=== PATIENT | female | born 1970 | race Caucasian/White ===

== ENCOUNTER 2024-04-19 18:49 | Emergency (ER) | payer BC, SELFPAY ==
[2024-04-19] VITALS (18 sets, daily range): BP systolic 175–176; BP diastolic 87–93; PULSE 62–108; TEMP 37; O2SAT 99–100; BMI 39.3
--- NOTE | 2024-04-19 19:23 | ECG_ITS ---
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
[2024-04-19 19:31] LABS: Basophils Absolute Auto 0.1 10^3/uL (0.0-0.1); Basophils Percent Auto 1.1 % (0.2-2.0); Eosinophils Absolute Auto 0.4 10^3/uL (0.0-0.7); Hematocrit 44.3 % (36.0-48.0); Hemoglobin 14.4 g/dL (12.0-16.0); Immature Granulocytes Abs Auto 0.08 10^3/uL (0.00-0.03); Immature Granulocytes Pct Auto 0.8 % (0.0-0.5); Lymphocytes Percent Auto 41.1 % (20.5-60.0); Mean Corpuscular HGB Conc 32.5 g/dL (29.9-35.2); Mean Corpuscular Hemoglobin 27.2 pg (26.7-34.0); Mean Corpuscular Volume 83.6 fL (81.0-99.0); Mean Platelet Volume 10.5 fL (9.5-13.5); Monocytes Percent Auto 10.5 % (1.7-12.0); Neutrophils Absolute Auto 4.1 10^3/uL (1.4-6.5); Neutrophils Percent Auto 42.5 % (43.0-75.0); Platelet Count 300 10^3/uL (150-450); Red Cell Distribution Width 12.8 % (11.0-15.0); White Blood Count 9.7 10^3/uL (4.0-11.0)
--- NOTE | 2024-04-19 19:33 | CT_ITS ---
[address] [address] Patient Name: LATONYA LACY MRN: [id number] date: 1970 Sex: F Assigned Patient Location: ER Current Patient Location: ER Accession/Order Number: [id number] Exam Date: 04/19/2024 19:48 Report Date: 04/19/2024 21:21 At the request of: DANITZA WAYNE Procedure: CT angio chest EXAM: CT angio chest , 04/19/2024 HISTORY: left sided chest pain, r/o Pulmonary embolism COMPARISON: Prior CT scan from 04/17/2022 TECHNIQUE: CT scan of the chest was performed following intravenous injection of 100 mL Omnipaque 350 iodine contrast with angio protocol. Coronal, sagittal and 3-D reconstructions are performed. Dose reduction techniques were achieved by using automated exposure control and/or adjustment of mA and/or kV according to patient size and/or use of iterative reconstruction technique. FINDINGS: The main pulmonary artery, right and left pulmonary arteries, lobar and segmental pulmonary arteries are patent and show no filling defect to suggest pulmonary thromboembolism. The lung windows demonstrate minimal dependent atelectasis. No focal consolidation or infiltrate. Right middle lobe 4 mm lung nodule and left lower lobe 5 mm lung nodule are unchanged since 2021 and likely benign. Follow-up with CT scan chest as per patient risk factors as advised. The mediastinal windows demonstrate patent thoracic aorta without aneurysm or dissection. Patent great vessels arising from the aortic arch. No pleural or pericardial effusion. The esophagus is nondilated. Small hiatal hernia. No axillary, mediastinal or hilar lymph node enlargement. The bone windows demonstrate minimal degenerative changes thoracic spine. No focal aggressive bone lesion. Scans through the upper abdomen show patent abdominal aorta, celiac axis and proximal superior mesenteric artery. Unremarkable adrenal glands. CT/CT angio chest IMPRESSION: 1. No evidence of pulmonary thromboembolism. 2. Small hiatal hernia. 3. Bilateral small lung nodules, unchanged since 2021, likely benign. Follow-up CT scan chest as per patient risk factors is advised. Electronically authenticated by: TONI DONALDSON Date: 04/19/2024 21:21
--- NOTE | 2024-04-19 19:35 | ED_ITS ---
HPI - Chest Pain General Chief Complaint: Chest Pain Stated Complaint: Chest Pain Time Seen by Provider: 04/19/24 19:19 Source: patient Mode of arrival: walk-in Limitations: no limitations History of Present Illness HPI narrative: 53-year-old female to the emergency department with chief complaint of chest pain. Patient reports that for the last 3 weeks she has had intermittent left- sided chest pain. She is unable to characterize. Comes on randomly. No provoking or palliating features. She does not have any cardiac history. She reports a history of hypertension, hyperlipidemia, hypothyroidism. No early cardiac disease in first-degree relative. Onset of the chest pain correlated with a upper respiratory infection that turned into bronchitis. The bronchitis has improved but the chest pain has not resolved. She denies any fever, sweats, chills. She has had a chest x-ray at an outside urgent care that was reported as normal last week. Related Data Home Medications ?Medication ?Instructions ?Recorded ?Confirmed albuterol sulfate 90 mcg/actuation 2 puff inhalation Q6H PRN 04/19/24 04/19/24 aerosol inhaler shortness of breath or wheezing cholecalciferol (vitamin D3) 50 50 mcg PO DAILY 04/19/24 04/19/24 mcg (2,000 unit) capsule levothyroxine 137 mcg tablet 137 mcg PO QDAY 04/19/24 04/19/24 lisinopril 20 mg tablet 20 mg PO QDAY 04/19/24 04/19/24 montelukast 10 mg tablet 10 mg PO QDAY 04/19/24 04/19/24 omeprazole 40 mg capsule,delayed 40 mg PO QDAY 04/19/24 04/19/24 release rosuvastatin 20 mg tablet 20 mg PO QDAY 04/19/24 04/19/24 Allergies Allergy/AdvReac Type Severity Reaction Status Date / Time amoxicillin Allergy Hives Verified 04/19/24 18:54 celecoxib [From Celebrex] AdvReac Hypertensio Verified 04/19/24 18:54 n meloxicam [From Mobic] AdvReac Hypertensio Verified 04/19/24 18:54 n Review of Systems ROS Status of ROS 10 or more systems reviewed and unremark able except as noted in history and below Exam Narrative Exam Narrative: VITALS: I have reviewed the triage vital signs. GENERAL: Well developed, well appearing adult in no acute distress. NEURO: Alert and oriented. Moves all extremities. Face is symmetric and expressive. EYES: PERRL. No scleral icterus or conjunctival injection. No discharge. HENT: Normocephalic, atraumatic. Hearing is grossly intact. Nares grossly patent and without discharge. Mucous membranes moist. NECK: No JVD. Patient moves neck without restriction. CARDIO: Rhythm regular. Normal rate. No murmur, rub, or gallop. Pulses equal bilaterally in the upper and lower extremity. No lower extremity edema. PULM: Lungs clear to auscultation in all victor. No wheezes, rales, or rhonchi. No conversational dyspnea. No splinting, stridor, or accessory muscle use. GI/: Abdomen is soft and non-tender. Normoactive bowel sounds. EXTREMITIES: Symmetric muscle bulk. No joint swelling. No clubbing, cyanosis, or deformity. SKIN: Warm and dry. Normal turgor. No rash or lesions appreciated. PSYCH: Mood, affect, and interaction is appropriate to the setting. Constitutional Vital Signs, click to edit/add: Last Vital Signs Temp 98.6 F 04/19/24 18:55 Pulse 91 H 04/19/24 18:55 Resp 16 04/19/24 18:55 BP 176/93 H 04/19/24 18:55 Pulse Ox 99 04/19/24 18:55 O2 Del Method Room Air 04/19/24 18:55 Course Vital Signs Vital signs: Vital Signs Temperature 98.6 F 04/19/24 18:55 Pulse Rate 91 H 04/19/24 18:55 Respiratory Rate 16 04/19/24 18:55 Blood Pressure 176/93 H 04/19/24 18:55 Pulse Oximetry 99 04/19/24 18:55 Oxygen Delivery Method Room Air 04/19/24 18:55 Temperature 98.6 F 04/19/24 18:55 Pulse Rate 91 H 04/19/24 18:55 Respiratory Rate 16 04/19/24 18:55 Blood Pressure 176/93 H 04/19/24 18:55 Pulse Oximetry 99 04/19/24 18:55 Oxygen Delivery Method Room Air 04/19/24 18:55 MDM - Chest Pain MDM Narrative Medical decision making narrative: 53-year-old female to the emergency department chief complaint of chest pain. Vital stable, the patient is afebrile. Cardiac workup is initiated. Moderate risk by Wells. Will order CTA for PE rule out and to better characterize if there is other acute process such as pneumonia causing the symptoms. History sounds more like pleurisy than acute coronary syndrome. Patient agrees with this plan. Lab work reviewed and noted. No major abnormalities. Troponin is negative x 2. CTA without evidence of pulmonary embolism, all nodules are again noted and unchanged, Discussed this with the patient. She is low risk by heart score. She is appropriate for outpatient follow-up with her PCP. Discussed NSAID therapy for suspected pleurisy. Return precautions were discussed. All questions were answered. The patient was discharged home. Heart Score for Major Cardiac Event History: Example factors for history - pattern of chest pain, onset, duration, relation with exercise, stress or cold, localization, concomitant symptoms. reaction to sublingual nitrates, [] Highly suspicious +2 [] Moderately suspicious +1 [x] Slightly suspicious 0 EKG: [] Significant ST-Depression +2 [] Non specific repolarization disturbance +1 [x] Normal 0 Age: [] >= 65 +2 [x] 45-65 + 1 [] <45 0 Risk Factors: (HLD, HTN, DM, Cigarette Smoking, Pos Family Hx, Obesity) [x] >3 risk factors or hx of atherosclerotic disease + 2 [] 1-2 risk factors + 1 [] No risk factors known 0 Troponin: [] >= 3X normal + 2 [] 1-3X normal + 1 [x] <= Normal 0 [x] 0-3 Points 0.9 - 1.7% risk of major adverse cardiac event in 6 weeks [] 4-6 Points 12-16.6% risk of major adverse cardiac event in 6 weeks [] 7-10 Points 50-65% risk of major adverse cardiac event in 6 weeks [x] 0-3 Points with 2 sets of negative cardiac markers <1% risk of major adverse cardiac event in 30 days. Medical Records Data Attestation: I reviewed the patient's medical records. Lab Data Attestation: I reviewed the patient's lab results. Labs: Lab Results 04/19/24 04/19/24 Range/Units 19:00 20:30 WBC 9.7 (4.0-11.0) 10^3/uL RBC 5.30 (4.20-5.40) 10^6/uL Hgb 14.4 (12.0-16.0) g/dL Hct 44.3 (36.0-48.0) % MCV 83.6 (81.0-99.0) fL MCH 27.2 (26.7-34.0) pg MCHC 32.5 (29.9-35.2) g/dL RDW 12.8 (11.0-15.0) % Plt Count 300 (150-450) 10^3/uL MPV 10.5 (9.5-13.5) fL Neut % (Auto) 42.5 L (43.0-75.0) % Lymph % (Auto) 41.1 (20.5-60.0) % Cameron % (Auto) 10.5 (1.7-12.0) % Eos % (Auto) 4.0 (0.9-7.0) % Baso % (Auto) 1.1 (0.2-2.0) % Neut # (Auto) 4.1 (1.4-6.5) 10^3/uL Lymph # (Auto) 4.0 H (1.2-3.8) 10^3/uL Cameron # (Auto) 1.0 H (0.3-0.8) 10^3/uL Eos # (Auto) 0.4 (0.0-0.7) 10^3/uL Baso # (Auto) 0.1 (0.0-0.1) 10^3/uL Abs Immat Gran (auto) 0.08 H (0.00-0.03) 10^3/uL Imm/Tot Granulo (auto) 0.8 H (0.0-0.5) % PT 10.4 (9.0-11.6) sec INR 0.98 APTT 28.4 (22.3-36.2) sec Sodium 141 (136-145) mmol/L Potassium 3.5 (3.5-5.1) mmol/L Chloride 106 (98-107) mmol/L Carbon Dioxide 27.6 (21.0-32.0) mmol/L Anion Gap 10.9 BUN 12.0 (7.0-18.0) mg/dL Creatinine 0.70 (0.55-1.02) mg/dL Est GFR ( Amer) >60 (>=60) Est GFR (Non-Af Amer) >60 (>=60) BUN/Creatinine Ratio 17.1 Glucose 91 (74-106) mg/dL Calcium 9.1 (8.5-10.1) mg/dL Troponin I High Sens 13.8 13.0 (4.0-51.3) pg/mL Imaging Data CT scan - chest: Radiologist's impression: ITS Impressions Chest CTA 04/19/24 19:33 IMPRESSION: 1. No evidence of pulmonary thromboembolism. 2. Small hiatal hernia. 3. Bilateral small lung nodules, unchanged since 2021, likely benign. Follow-up CT scan chest as per patient risk factors is advised. Electronically authenticated by: TONI DONALDSON Date: 04/19/2024 21:21 ECG Data Attestation: I personally reviewed and interpreted this ECG as follows: (Normal sinus rhythm at a rate of 63. No STEMI. Normal QTc.) Discharge Plan Discharge Stand Alone Forms: Portal Instructions Chief Complaint: Chest Pain Clinical Impression: Atypical chest pain Patient Disposition: Home, Self-Care Time of Disposition Decision: 21:43 Condition: Good Mode of Transportation: Private Vehicle Prescriptions / Home Meds: No Action albuterol sulfate 90 mcg/actuation HFA aerosol inhaler 2 puff INHALATION Q6H PRN (Reason: shortness of breath or wheezing) levothyroxine 137 mcg tablet 137 mcg PO QDAY lisinopril 20 mg tablet 20 mg PO QDAY montelukast 10 mg tablet 10 mg PO QDAY omeprazole 40 mg capsule,delayed release(DR/EC) 40 mg PO QDAY rosuvastatin 20 mg tablet 20 mg PO QDAY cholecalciferol (vitamin D3) 50 mcg (2,000 unit) capsule 50 mcg PO DAILY Print Language: Turkmen Instructions: Noncardiac Chest Pain (ED) Additional Instructions: Call the office of your primary care doctor to arrange for follow-up within the above-stated timeframe. Your ED visit was focused on your acute issue and does not replace primary care. You should review your labs, imaging, and diagnoses from this ED visit with your primary care physician. There may be non-emergent/ incidental findings that need further evaluation. You should review your vital signs including blood pressure with your PCP. If you were prescribed medications you should discuss possible side-effects and drug interactions with your pharmacist. Call 911 or go to the nearest Emergency Department if you develop any new or worsening symptoms. Seek immediate medical attention if you develop: worsening chest pain, new chest pain, nausea, vomiting, weakness, numbness, tingling, excessive sweating, shortness of breath, difficulty breathing, loss of motion in your arms or legs, or any new or worsening symptoms. Referrals: DELPHINE BRANTLEY [Primary Care Provider] - 1 week
[2024-04-19 19:40] LABS: INR 0.98; Partial Thromboplastin Time 28.4 sec (22.3-36.2); Prothrombin Time 10.4 sec (9.0-11.6)
[2024-04-19 19:49] LABS: Anion Gap 10.9; BUN Creatinine Ratio 17.1; Calcium 9.1 mg/dL (8.5-10.1); Carbon Dioxide 27.6 mmol/L (21.0-32.0); Chloride 106 mmol/L (98-107); Estimated GFR (African America >60 (>=60); Estimated GFR (Non-African Ame >60 (>=60); Glucose 91 mg/dL (74-106); Potassium 3.5 mmol/L (3.5-5.1); Sodium 141 mmol/L (136-145); Troponin I High Sensitivity 13.8 pg/mL (4.0-51.3)
== END 2024-04-19 22:00 | disposition home or self-care (01) ==
PROVIDERS: Emergency Provider Student in an Organized Health Care Education/Training Program; PCP Nurse Practitioner
DX: R07.89 Other chest pain (principal); I10 Essential (primary) hypertension; E03.9 Hypothyroidism, unspecified; E78.5 Hyperlipidemia, unspecified
CPT/HCPCS: 36415; 71275; 80048; 84484; 85025; 85610; 85730; 93005; 99285; Q9967

== ENCOUNTER 2025-03-16 08:34 | Outpatient (OUT) | payer BC, SELFPAY ==
--- NOTE | 2025-03-16 08:37 | CT_ITS ---
The [address] [address] Patient Name: LATONYA LACY MRN: [id number] date: 1970 Sex: F Assigned Patient Location: [facility] Current Patient Location: [facility] Accession/Order Number: [id number] Exam Date: 03/16/2025 09:49 Report Date: 03/16/2025 10:01 At the request of: NON-STAFF PHYSICIAN MD Procedure: CT chest wo con CT CHEST WITHOUT CONTRAST COMPARISON: 04/19/2024 and 04/17/2022 CLINICAL DATA: Follow-up lung nodules. Spiral images were obtained through the chest without contrast. Images were reviewed using both narrow and wide window settings. This CT exam was performed using one or more following dose reduction techniques: Automated exposure control, adjustment of the mA and/or kV according to patient size, or use of iterative reconstruction technique. The heart is top normal in size. No pericardial effusion is seen. The ascending aorta is mildly ectatic. A few small nonpathologic mediastinal lymph nodes are again seen. There is a tiny hiatal hernia. Subtle levoscoliotic curvature and minor endplate spurring are seen at the spine. There is minor dependent atelectasis. No additional consolidation, pleural effusion or pneumothorax is seen. There are tiny stable nodular densities at the right middle lobe adjacent to the minor fissure as well as at the left lower lobe. No new nodularity is seen. Limited cuts through the upper abdomen again show a subtle hypodensity area adjacent to the gallbladder fossa anteriorly. There are no other contributory findings. CT/CT chest wo con IMPRESSION: STABLE PULMONARY NODULARITY. MINOR DEPENDENT ATELECTASIS. TINY HIATAL HERNIA. Impression dictated by: Екатерина Boyle M.D. 03/16/2025 10:01 AM Dictation Location: [place] [address] Electronically authenticated by: [id number] Y Date: 03/16/2025 10:01
--- NOTE | 2025-03-16 08:37 | MM_ITS ---
Patient Name: LATONYA LACY MR#: [id number] : 1970 Exam Date: 03/16/2025 Ordering Doctor: NON-STAFF PHYSICIAN RADIOLOGY REPORT PROCEDURE: MM TOMOSYNTHESIS SCREENING BI COMPARISON: MM TOMOSYNTHESIS SCREENING BI, 04/27/2023. MM TOMOSYNTHESIS SCREENING BI, 03/13/2021. INDICATIONS: Screening Calculator Name NCI Breast Cancer Risk Assessment Tool 5 Year Breast Cancer Risk 1.10% Lifetime Breast Cancer Risk 7.20% Personal Breast Cancer No Personal Ovarian Cancer No Treatments None Family Cancers Grandmother-maternal with breast cancer at age 65; Father with lung/bladder cancer at age 70. LOCATION: [facility] BREAST COMPOSITION: There are scattered areas of fibroglandular density. FINDINGS: DIAGNOSTIC CATEGORY 1--NEGATIVE. RIGHT BREAST: No significant suspicious finding. LEFT BREAST: No significant suspicious finding. RECOMMENDATIONS: ROUTINE MAMMOGRAM AND CLINICAL EVALUATION IN 12 MONTHS. PLEASE NOTE: A NORMAL MAMMOGRAM DOES NOT EXCLUDE THE POSSIBILITY OF BREAST CANCER. A CLINICALLY SUSPICIOUS PALPABLE LUMP SHOULD BE BIOPSIED. Dictated by: Iron Oquendo DO on 03/16/2025 at 15:42 Approved by: Iron Oquendo DO on 03/16/2025 at 15:49
== END 2025-03-16 08:35 | disposition home or self-care (01) ==
LOC: MAMMO 08:34
PROVIDERS: PCP Nurse Practitioner
DX: R91.1 Solitary pulmonary nodule (principal); Z80.3 Family history of malignant neoplasm of breast; Z80.1 Family history of malignant neoplasm of trachea, bronchus and lung; Z80.52 Family history of malignant neoplasm of bladder
CPT/HCPCS: 71250; 77063; 77067

== ENCOUNTER 2025-07-26 02:50 | Emergency (ER) | payer BC, SELFPAY ==
[2025-07-26 03:32] VITALS: BP 178/101; PULSE 77; TEMP 36.8; O2SAT 98; BMI 38.6
--- NOTE | 2025-07-26 03:41 | XR_ITS ---
The [address] [address] Patient Name: LATONYA LACY MRN: [id number] date: 1970 Sex: F Assigned Patient Location: ED.MAIN Current Patient Location: Accession/Order Number: [id number] Exam Date: 07/26/2025 03:48 Report Date: 07/26/2025 07:58 At the request of: SUSAN LEVIN MD Procedure: XR soft tissue neck XR soft tissue neck 07/26/2025 3:54 AM SIGNS AND SYMPTOMS: ^diff swallowing PROTOCOLS: Frontal and lateral radiographs of the cervical spine COMPARISON: None FINDINGS: The bones are in anatomic alignment. There is preservation of the vertebral body heights. There is mild disc height loss at C5-C6 and C6-C7 with anterior osteophyte formation. There is no fracture or destructive lesion. The prevertebral soft tissues are within normal limits. The nasopharyngeal, oropharyngeal, hypopharyngeal, glottic, and visualized subglottic airway are within normal limits. XR/XR soft tissue neck IMPRESSION: Normal soft tissues of the neck. Impression dictated by: Nadir Olivera M.D. 07/26/2025 7:58 AM Dictation Location: [place] [address] Electronically authenticated by: [id number] Y Date: 07/26/2025 07:58
--- NOTE | 2025-07-26 03:43 | ED_ITS ---
HPI - URI/Sore Throat General Chief Complaint: Upper Respiratory Infection Stated Complaint: SORE THROAT, STUFFY NOSE, WATERY EYES Time Seen by Provider: 07/26/25 02:53 Source: patient Limitations: no limitations History of Present Illness HPI Narrative: This 54-year-old female with a history of hypertension presents for evaluation of sinus congestion and a sore throat. The patient states she feels like she is going to choke on her uvula. Symptoms started yesterday. She has a mild rhinorrhea. She has not had a fever. She states it feels like razor blades in the back of her throat. She does not have any cough or chest congestion. She denies any chest pain or shortness of breath. She does have a history of asthma. She is on lisinopril. Related Data Home Medications ?Medication ?Instructions ?Recorded ?Confirmed albuterol sulfate 90 mcg/actuation 2 puff inhalation Q 6H PRN 04/19/24 04/19/24 aerosol inhaler shortness of breath or wheez ing cholecalciferol (vitamin D3) 50 50 mcg PO DAILY 04/19/24 mcg (2,000 unit) capsule levothyroxine 137 mcg tablet 137 mcg PO QDAY 04/19/24 04/19/24 lisinopril 20 mg tablet 20 mg PO QDAY 04/19/2404/19 montelukast 10 mg tablet 10 mg PO QDAY 04/19/2404/19 omeprazole 40 mg capsule,delayed 40 mg PO QDAY 4 04/19/24 release rosuvastatin 20 mg tablet 20 mg PO QDAY 04/19/2404/19 Allergies Allergy/AdvReac Type Severity Reaction Status Date / Time amoxicillin Allergy Hives Verified 07/26/25 03:32 celecoxib (From Celebrex) AdvReac Hypertensio Verified 07/26/25 03:32 n meloxicam (From Mobic) AdvReac Hypertensio Verified 07/26/25 03:32 n Review of Systems ROS Status of ROS 10 or more systems reviewed and unremark able except as noted in history and below PFSH PFSH Social History Little interest or pleasure in doing things: not at all Feeling down, depressed, or hopeless: not at all Exam Narrative Exam Narrative: Vital signs and Nursing Notes reviewed: As afebrile with normal pulse, blood pressure is elevated at 178/101, she is not hypoxic with pulse ox of 98% on room air General: Awake, alert, oriented, no acute distress, lying comfortably on the [facility], speaking in complete sentences, no distress noted HEENT: Normocephalic atraumatic, mucous membranes are moist and pink, eyes are clear, normal conjunctiva, vision is grossly intact, there is mild erythema and edema with elongation of the uvula, mild right peritonsillar edema as well. No tonsillar hypertrophy or exudate noted. There is no swelling of the tongue or pharyngeal soft tissues, there is no pooling of secretions, patient's speech is clear, not muffled Neck: Supple, no fullness in the anterior neck, no stridor Chest: Lungs are clear to auscultation with good air entry, there is no wheezing rhonchi or rales appreciated no accessory muscle use, patient is speaking in complete sentences-no chest wall tenderness to palpation CVS: Regular rate and rhythm S1-S2, no murmurs rubs or gallops, pulses are brisk and equal bilaterally Extremities: Moving all extremities, no lower extremity tenderness or swelling noted, negative Homans' sign, pulses are brisk and equal bilaterally Skin: Normal in appearance without rash,pallor, petechiae or purpura Neuro: No focal deficits Constitutional Vital Signs, click to edit/add: Last Vital Signs Temp 98.3 F 07/26/25 03:32 Pulse 77 07/26/25 03:32 Resp 17 07/26/25 03:32 BP 178/101 H 07/26/25 03:32 Pulse Ox 98 07/26/25 03:32 O2 Del Method Room Air 07/26/25 03:32 Course Vital Signs Vital signs: Vital Signs Temperature 98.3 F 07/26/25 03:32 Pulse Rate 77 07/26/25 03:32 Respiratory Rate 17 07/26/25 03:32 Blood Pressure 178/101 H 07/26/25 03:32 Pulse Oximetry 98 07/26/25 03:32 Oxygen Delivery Method Room Air 07/26/25 03:32 Temperature 98.3 F 07/26/25 03:32 Pulse Rate 77 07/26/25 03:32 Respiratory Rate 17 07/26/25 03:32 Blood Pressure 178/101 H 07/26/25 03:32 Pulse Oximetry 98 07/26/25 03:32 Oxygen Delivery Method Room Air 07/26/25 03:32 MDM - URI/Sore Throat MDM Narrative Medical decision making narrative: This 54-year-old female with history of asthma presents for evaluation of upper respiratory symptoms. She states she thought she was getting a sinus cold yesterday because she had runny nose and sinus congestion. She woke up this morning with a sore throat and a sensation that her uvula was going to choke her if she was going to lie down. She has not had a fever. She has not taken her medications this morning because she states it hurts to swallow. Her blood pressure is elevated at 170/101. She does have some uvula edema and elongation with some right sided peritonsillar edema. There is no peritonsillar abscess. I cannot see her tonsils. I do not appreciate any postnasal drip. There is no swelling of the tongue or additional soft tissues of the mouth. There is no stridor, trachea is midline and there is no appreciable lymphadenopathy. She was medicated with ibuprofen and IM Solu-Medrol for the uvular swelling and swelling of the peritonsillar soft tissues. She was given ibuprofen for her discomfort and hot tea. She is not having any trismus or drooling. There is no pooling of secretions, there is no swelling of the sublingual tissues of her tongue, the tongue itself her lips or her anterior neck. Strep and COVID-19 testing was ordered as well as a soft tissue x-ray of the neck. Soft tissue x- ray of the neck was reviewed by myself. There is no sign of epiglottitis with normal landmarks and prevertebral spaces. Strep and COVID-19 testing is negative. The patient was reevaluated. She is drinking hot tea without difficulty. Her voice is less scratchy and she states she feels better. Her uvula is still mildly edematous but the edema has not increased or worsened. There is no increased peritonsillar swelling. She is tolerating secretions without difficulty. Due to the uvula edema and erythema she will be discharged home with a prescription for doxycycline and a Medrol Dosepak will be prescribed. I explained to her that her symptoms are likely viral in nature but due to the uvula swelling I will prescribe her antibiotics. I did discuss angioedema with her in regards to her lisinopril. At this time I do not feel that this is consistent with angioedema more consistent with an upper respiratory tract infection but is something for her to be aware of. Lab Data Labs: Lab Results 07/26/25 Range/Units 05:35 SARS-CoV-2 Ag (CV2AG) Negative (NEGATIVE) Streptococcus Screen Negative Discharge Plan Discharge Chief Complaint: Upper Respiratory Infection Clinical Impression: Upper respiratory infection, Swollen uvula Patient Disposition: Home, Self-Care Time of Disposition Decision: 06:00 Condition: Good Prescriptions / Home Meds: No Action albuterol sulfate 90 mcg/actuation HFA aerosol inhaler 2 puff INHALATION Q6H PRN (Reason: shortness of breath or wheezing) levothyroxine 137 mcg tablet 137 mcg PO QDAY lisinopril 20 mg tablet 20 mg PO QDAY montelukast 10 mg tablet 10 mg PO QDAY omeprazole 40 mg capsule,delayed release(DR/EC) 40 mg PO QDAY rosuvastatin 20 mg tablet 20 mg PO QDAY cholecalciferol (vitamin D3) 50 mcg (2,000 unit) capsule 50 mcg PO DAILY Print Language: Yoruba Instructions: Pharyngitis (ED), Upper Respiratory Infection (ED) Referrals: DELPHINE BRANTLEY [Primary Care Provider, Unknown] - 1 week
--- OUTSIDE RECORDS SUMMARY | 2025-07-26 03:51 | XMS_ITS | Clinical Summary ---
Author Organization [facility] tem Address [facility] [place]-[id number] [address] [place] [address] Care Team Providers Care Outsole Rounder Name Role Phone Anju Roblero B[facility]va [facility] Primary Care Provider + Allergies Active AllergyReactionsCriticalityNoted GhztEfhrdyfqPequyhfnhudAnjaXez06/02/2021 XltwsrojtkfnavcmbemllWskd42/02/2021 Medications MedicationSigDispense QuantityRefillsLast FilledStart DateEnd DateStatus levothyroxine (SYNTHROID, LEVOTHROID) 150 MCG tablet Take 150 mcg by mouth daily.Active lisinopriL (PRINIVIL,ZESTRIL) 20 mg tablet Take 20 mg by mouth daily.Active montelukast (SINGULAIR) 10 mg tablet Take 10 mg by mouth nightly.Active cholecalciferol (VITAMIN D3) 1,000 units tablet Take 1,000 Units by mouth daily.Active Social History Tobacco UseTypesPacks/DayYears UsedDateSmoking Tobacco: NeverSmokeless Tobacco: NeverAlcohol UseStandard Drinks/WeekCommentsYes0 (1 standard drink = 0.6 oz pure alcohol)ChildcareAnswerDate MpnbcbsqMypwaxjcbMnvvwsu53/12/2019EmploymentAnswer Date DtyekscqGycavdnfhxOvaumjf91/12/2019CommentsNoSex and Gender InformationValueDate RecordedSex Assigned at BirthNot on fileLegal SexFemale 05/10/2015 11:59 AM EDTGender IdentityNot on fileSexual OrientationNot on file Last Filed Vital Signs Vital SignReadingTime TakenCommentsBlood Bgoaptgu814/7110 9:17 PM EDT Rsnts672511/2020 9:17 PM WZXPmwncfcaunc74 ??C (98.6 ??F)07/06/2021 9:17 PM EDT Respiratory Lkmt2372 9:17 PM EDTOxygen Ozgtdxxiro06%07/06/2021 9:17 PM EDTInhaled Oxygen Concentration--Atrojv35.9 kg (218 lb)07/06/2021 9:17 PM EDT Cgtiap021 cm (5' 3 )07/06/2021 9:17 PM EDTBody Mass Index38.6207/06/2021 9:17 PM EDT Plan of Treatment Not on file Medical Devices Not on file Insurance Care Teams Team MemberRelationshipSpecialtyStart DateEnd Date Anju Roblero, STEPHEN-JAVA ENTERPRISE ARCHITECT PCP - GeneralNurse Zkytmljrekrr06/2/21
--- OUTSIDE RECORDS SUMMARY | 2025-07-26 03:52 | XMS_ITS | Clinical Summary ---
Author Organization [facility] Address [address], [address] [place] [address] Care Team Providers Care Hang Gliding Instructor Name Role Phone Anju vail STEPHEN - BARREL DRUM CUTTER Primary Care Provider [phone] Allergies Active AllergyReactionsCriticalityNoted FdthAmkfmrikYdkbvhigjfpQnwjUfa72/07/2012 CelecoxibOther (See Comments)11/11/2011 Elevated BP MobicOther (See Comments)11/11/2011 Red in face, elevated BP Niacin And GwhxnroAtqcEtnwvv62/03/2019 Medications MedicationSigDispense QuantityRefillsLast FilledStart DateEnd DateStatus LISINOPRIL PO Take 20 mg by mouth DailyActive sertraline (ZOLOFT) 100 MG tablet Take 100 mg by mouth daily Take 1 1/2 tabs dailyActive cetirizine (ZYRTEC) 10 MG tablet Take 10 mg by mouth dailyActive montelukast (SINGULAIR) 10 MG tablet Take 10 mg by mouth nightlyActive omeprazole (PRILOSEC) 20 MG delayed release capsule Take 20 mg by mouth dailyActive gabapentin (NEURONTIN) 100 MG capsule Take 100 mg by mouth daily.Active VITAMIN D-3 SUPER STRENGTH 2000 units TABS Take 20,000 mg by mouth daily02/21/2019Active estradiol (ESTRACE) 0.1 MG/GM vaginal cream Place 0.01 g vaginally as saaamx2802/21/2019Active fluticasone (FLONASE) 50 MCG/ACT nasal spray 50 sprays by Nasal route daily03/18/2019Active levothyroxine (SYNTHROID) 150 MCG tablet Take 150 mcg by mouth daily02/15/2019Active rosuvastatin (CRESTOR) 5 MG tablet Take 5 mg by mouth daily03/03/2019Active albuterol sulfate (PROAIR RESPICLICK) 108 (90 Base) MCG/ACT aerosol powder inhalation Inhale 90 Inhalers into the lungs as jonfqi9803/04/2017Active Na Sulfate-K Sulfate-Mg Sulf (SUPREP BOWEL PREP KIT) 17.5-3.13-1.6 GM/177ML SOLN Take as directed 2 Bottle 10/20/2019Active azelastine (ASTELIN) 0.1 % nasal spray by Nasal routeActive Active Problems ProblemNoted DateDiagnosed UpyzHadxochvy17/02/2016 Resolved Problems ProblemNoted DateDiagnosed DateResolved DateColon cancer /22/2019 11/19/2019 Family History Medical HistoryRelationNameCommentsOtherBrotherdiverticulosisDiabetesFatherHigh Blood PressureFatherColon PolypsMaternal GrandfatherBreast CancerMaternal GrandmotherDiabetesMotherHigh Blood PressureMotherOtherMotherpituitary tumor StrokeMotherRelationNameStatusCommentsBrotherAliveFatherAliveMaternal GrandfatherMaternal GrandmotherMotherAlive Social History Tobacco UseTypesPacks/DayYears UsedDateSmoking Tobacco: NeverSmokeless Tobacco: NeverAlcohol UseStandard Drinks/WeekCommentsYes0 (1 standard drink = 0.6 oz pure alcohol)rarelyCommentsNoSex and Gender InformationValueDate RecordedSex Assigned at BirthNot on fileLegal PjgCvfgre87/10/2013 11:42 AM ESTGender IdentityNot on fileSexual OrientationNot on file Last Filed Vital Signs Vital SignReadingTime TakenCommentsBlood Fdbvrjgx598/8210 2:40 PM EDT Wzpqz2227 2:40 PM DEBBuskuxbwykl93.1 ??C (96.9 ??F)06/12/2021 2:40 PM EDTRespiratory Rwdq4876 2:40 PM EDTOxygen Ohksplaccj97%05/16/2019 2:22 PM EDTInhaled Oxygen Concentration--Kxxgmv96.6 kg (202 lb)11/12/2015 10:25 AM MSHUvbbnp029 cm (5' 3 )11/12/2015 10:25 AM ESTBody Mass Index35.78011/12/2015 10:25 AM EST Plan of Treatment Health MaintenanceDue DateLast DoneCommentsDepression Cashwc0609/06/1980HIV screen 1983Hepatitis C beetzr9209/06/1986Hepatitis B vaccine (1 of 3 - 19+ 3-dose series)09/06/19871617Fohvehlgptw92/03/2013Colorectal Cancer Mlljyi5209/06/2013 FIT/FOBT: Average risk2013Fecal-DNA (Cologuard): Average risk2013 Sigmoidoscopy/CT louqpyerhiqo28/03/2050Izhqdu83, 10/03/2014, 07/23/2013Pneumococcal 50+ years Vaccine (1 of 1 - PCV)2018Shingles vaccine (2 of 2)/2Breast cancer , 09/25/2022, 03/13/2021, Additional history existsFlu vaccine (#1)05/05/2025 COVID-19 Vaccine (2024- season)501/04/2022, 01/24/2021, 01/03/2021, Additional history existsDTaP/Tdap/Td vaccine (2 - Td or Tdap) Hepatitis A vaccineAged OutNo longer eligible based on patient's age to complete this topicHib vaccineAged OutNo longer eligible based on patient's age to complete this topicMeningococcal (ACWY) vaccineAged OutNo longer eligible based on patient's age to complete this topicMeningococcal B vaccineAged OutNo longer eligible based on patient's age to complete this topic Polio vaccineAged OutNo longer eligible based on patient's age to complete this topic Procedures Procedure NamePriorityDate/TimeAssociated DiagnosisCommentsMAM BOBBY DIGITAL SCREEN SKUORYUZYElxqkyf68/24/2023 5:03 PM EDT Breast cancer screening by mammogram LIPID XAJWLZftbyqc84/05/2015 7:50 AM EST from Last 3 Months or Most Recently Relevant to Health Maintenance Results * NAVA BOBBY DIGITAL SCREEN BILATERAL (04/27/2023 5:03 PM EDT)Anatomical Region LateralityModalityBreastBilateralMammographySpecimen (Source)Anatomical Location / LateralityCollection Method / VolumeCollection TimeReceived Time 04/27/2023 5:07 PM EDT Impressions 04/27/2023 6:38 PM EDT No evidence of malignancy. Advise annual screening mammography. BI-RADS 1 BIRADS: BIRADS - CATEGORY 1 Negative, no evidence of malignancy. ??Normal interval follow-up is recommended in 12 months. OVERALL ASSESSMENT - NEGATIVE A letter of notification will be sent to the patient regarding the results. The [employer] recommends annual mammograms for women 40 years and older. Narrative 04/27/2023 6:38 PM EDT EXAMINATION: SCREENING DIGITAL BILATERAL MAMMOGRAM WITH TOMOSYNTHESIS, 04/27/2023 TECHNIQUE: Screening mammography was performed with tomosynthesis including MLO and CC views of the bilateral breasts. Computer aided detection was used for the interpretation of this exam. COMPARISON: 12 March 2021; 03 August 2019 HISTORY: Screening. Positive family history of breast cancer; maternal grandmother after age 50. ??22 year history of oral contraception. ??No hormonal replacement therapy or breast interventions. FINDINGS: Breasts are composed of scattered fibroglandular density. ??No skin thickening, nipple contour changes, suspicious calcifications, suspicious masses, areas of architectural distortion or significant interval changes are noted. Authorizing ProviderResult TypeResult StatusOrin De Los Santos CAN REFORMING MACHINE OPERATOR - NPIMG MAMMOGRAPHY ORDERABLESFinal Result * Lipid Panel (09/08/2015 7:50 AM EST)ComponentValueRef RangeTest MethodAnalysis TimePerformed AtPathologist AoqnxgcvhJgbiiblbexh069<200 mg/dL09/08/2015 8:46 AM ESTMHPN LABComment: Cholesterol Guidelines: <200 Desirable 200-240 ??Borderline >240 Undesirable HDL55>40 mg/dL09/08/2015 8:46 AM ESTMHPN LABComment: HDL Guidelines: <40 Undesirable 40-59 ?Borderline >59 Desirable LDL Ykgihpcxbza1466 - 130 mg/dL09/08/2015 8:46 AM ESTMHPN LABComment: LDL Guidelines: <100 Desirable 100-129 ?? Near to/above Desirable 130-159 ?? Borderline >159 Undesirable Direct (measured) LDL and calculated LDL are not interchangeable tests. Chol/HDL Ratio3.4< 8:46 AM ESTMHPN LABComment:Mxifibpmhfukz68<150 mg/dL09/08/2015 8:46 AM ESTMHPN LABComment: Triglyceride Guidelines: <150 Desirable 150-199 ??Borderline 200-499 ??High >499 Very high Based on AHA Guidelines for fasting triglyceride, July 2012. Performed at [address] [place] [address] ([phone] VLDLNOT REPORTED1 - 30 mg/dLSELECT [facility] LABSpecimen (Source) Anatomical Location / LateralityCollection Method / VolumeCollection Time Received Time09/08/2015 7:50 AM EST09/08/2015 7:51 AM EST Narrative Authorizing ProviderResult TypeResult StatusRachel Fruth CAN REFORMING MACHINE OPERATOR - NPCHEMISTRY ORDERABLESFinal ResultPerforming OrganizationAddressCity/State/ZIP CodePhone Number [facility] [address] [place] [address], [facility] [phone] MH LAB from Last 3 Months or Most Recently Relevant to Health Maintenance Insurance Care Teams Team MemberRelationshipSpecialtyStart DateEnd Date Anju Roblero APRN - ELIZABETH [address] [place], [place] [id number] [facility]02/17/22
--- OUTSIDE RECORDS SUMMARY | 2025-07-26 03:52 | XMS_ITS | Clinical Summary ---
Author Organization [facility] Address [address] [place] [address] Care Team Providers Care Doll Repairer Name Role Phone Nuris, Jose M Cruz DO Primary Care Provider Orin De Los Santos PULPWOOD BUYER Unavailable Allergies Active AllergyReactionsCriticalityNoted DateCommentsA-G LbmQgoef03/17/2021 RardotzpevgInmvPms47/07/7057Thcgmpaxk84/07/2012 Other Reaction(s): Other (See Comments), Unknown Elevated BP PhyujmdugOdzalBvyr83/07/2012 Other Reaction(s): hypertension, Unknown Red in face, elevated BP Niacin And RelatedHives,KidtZffnfm45/03/2019Penicillin UMtbybru79/17/2021 Zxdpzbitul79/02/2023 Other Reaction(s): sexual side effects OksqaczYlpgbeb08/17/2021 Medications MedicationSigDispense QuantityRefillsLast FilledStart DateEnd DateStatus Elderberry 500 MG capsule Active cholecalciferol (Vitamin D-3) 25 MCG (1000 UT) tablet Take 1,000 Units by mouth in the morning.Active cetirizine (ZyrTEC ALLERGY) 10 MG tablet 1 (one) time each day at the same timeActive azelastine (Astelin) 0.1 % nasal spray every 12 (twelve) hoursActive Ashwagandha 500 MG capsule DailyActive albuterol HFA 90 mcg/act inhaler 04/15/2022ctive pyridoxine (Vitamin B-6) 25 MG tablet Take 25 mg by mouth DailyActive cyanocobalamin (Vitamin B-12) 1000 MCG tablet Take 1,000 mcg by mouth DailyActive Calcium Carb-Cholecalciferol (CALCIUM 500 + D3 PO) Take by mouthActive multivitamin (Theragran) tablet Take 1 tablet by mouth DailyActive cyclobenzaprine (Flexeril) 10 MG tablet Indications:Muscle spasmTake 1 tablet (10 mg) by mouth at bedtime for 10 days 10 tablet 4Active ALPRAZolam (Xanax) 0.25 MG tablet Indications:Stress reactionTake 1 tablet (0.25 mg) by mouth 2 (two) times a day as needed for anxiety for up to 5 days 10 tablet 5Active aspirin 81 MG EC tablet Take 81 mg by mouth DailyActive loratadine (Claritin) 10 MG tablet Take by mouthActive predniSONE (Deltasone) 20 MG tablet Indications:Acute pain of left shoulder2 daily for 3 days, then 1 daily for 3 days 9 tablet 5Active Additional Information Patient not taking.Reported on 03/20/2025 levothyroxine (Synthroid, Levoxyl) 137 MCG tablet Indications:Acquired hypothyroidismTake 137 mcg by mouth in the morning. Take before meals. 90 tablet /6Active omeprazole (PriLOSEC) [address] capsule Indications:GERD without esophagitisTAKE 1 CAPSULE BY MOUTH IN THE MORNING BEFORE A MEAL DO NOT CRUSH OR CHEW 90 capsule 5Active lisinopril 20 MG tablet Indications:Essential hypertensionTAKE 1 TABLET BY MOUTH IN THE MORNING 90 tablet 5Active montelukast (Singulair) 10 MG tablet Indications:Asthma, unspecified asthma severity, unspecified whether complicated, unspecified whether persistent (HCC)TAKE 1 TABLET BY MOUTH AT BEDTIME 90 tablet 5Active rosuvastatin (Crestor) 20 MG tablet Indications:Mixed hyperlipidemiaTAKE 1 TABLET BY MOUTH ONCE DAILY 90 tablet 5Active Active Problems ProblemNoted DateDiagnosed IzqpSziursdeukju23/20/2019Stress /21/2017 Epahkfwnd63/01/9625Wakkablywfbj98/29/2016Status post nlvkpldautcy15/04/2016 Hiatal qadvut8411/12/2015Reflux aelqczagjcd02/08/2016Acquired hypothyroidism 10/09/2015Environmental and seasonal velwfpwbh93/05/2016Vitamin D deficiency 10/09/20154137Ltcwnn97/07/2015Essential wmnusqjsrsil57/07/2015 Resolved Problems ProblemNoted DateDiagnosed DateResolved DateMorbid (severe) obesity due to excess xsevvuyk44Pulmonary ccqlbl54Facial zeewtbjtspc38Mixed stress and urge urinary incontinence Surgical pmvmcsrjz93Menopausal disorder lass 2 gmkodxb19Tension-type headache, not jcspazrpmqm41nxietySchatzki's ring DysphagiaHyperglycemia10/09/2015 02/13/2025Mixed dhaglxqfvrbqfh00 Encounters DateTypeDepartmentCare XmgfLhkknfwiroo29/22/2025Telephone [facility] [address] [place] [address] Jayne Lazo LPN Appointment Neihmxg9305/26/2025Refill [facility] [address] [place] [address] Orin De Los Santos, PULPWOOD BUYER Essential hypertension ; Asthma, unspecified asthma severity, unspecified whether complicated, unspecified whether persistent (HCC); Mixed gvtehlqbdxnonp51/22/2025Refill [facility] [address] [place] [address] Elizabeth Vieira, PULP[employer]OD BUYER GERD without esophagitisfrom Last 3 Months Immunizations ImmunizationAdministration DatesNext DuePfizer Purple Cap SARS-CoV-2 Vaccination 12/21/2020Tdap10/20/2017Zoster, Asxyqtlrivo13/07/2022 Family History Medical HistoryRelationNameCommentsAsthmaDaughterMadisonDiabetesFatherDaniel Hearing lossFatherDanielHeart diseaseFatherDanielHypertensionFatherDanielLung cancerFatherDanielbladder cancerFatherDanielKidney diseaseMaternal Grandfather HubertBreast cancerMaternal GrandmotherNellieDepressionMaternal Grandmother NellieUterine cancerMaternal GrandmotherNellieArthritisMotherDorisDiabetesMother DorisGoutMotherDorisIrritable bowel syndromeMotherDorisStrokeMotherDoris pituitary tumorMotherDorisRelationNameStatusCommentsDaughterMadisonFatherDaniel AliveMaternal GrandfatherHubertDeceasedMaternal GrandmotherNellieDeceasedMother DorisAlivePaternal GrandfatherDeceasedPaternal GrandmotherDeceased Social History Tobacco UseTypesPacks/DayYears UsedDateSmoking Tobacco: NeverSmokeless Tobacco: Never Tobacco Cessation:Counseling Given: No Alcohol UseStandard Drinks/WeekCommentsYes1 (1 standard drink = 0.6 oz pure alcohol)Maybe once a quiqkW6216 Health LiteracyAnswerDate RecordedHow often do you need to have someone help you when you read instructions, pamphlets, or other written material from your doctor or pharmacy?Never02/13/2025Humiliation, Afraid, Rape, and Kick questionnaireAnswerDate RecordedWithin the last year, have you been afraid of your partner or ex-partner?No02/13/2025Within the last year, have you been humiliated or emotionally abused in other ways by your partner or ex-partner?No02/13/2025Within the last year, have you been kicked, hit, slapped, or otherwise physically hurt by your partner or ex-partner?No 02/13/2025Within the last year, have you been raped or forced to have any kind of sexual activity by your partner or ex-partner?No02/13/2025Social Connection and Isolation PanelAnswerDate RecordedIn a typical week, how many times do you talk on the phone with family, friends, or neighbors?More than three times a week02/13/2025How often do you get together with friends or relatives?Once a week02/13/2025How often do you attend sabianism or jainism services?Patient rdknjdka02/12/2025Do you belong to any clubs or organizations such as sabianism groups, unions, fraTrendy Mondays or athletic groups, or school groups?No02/13/2025How often do you attend meetings of the clubs or organizations you belong to?Never 02/13/2025re you , , , , never , or living with a partner?Cpwxwtm9202/13/2025UDIT-CAnswerDate RecordedQ1: How often do you have a drink containing alcohol?Monthly or less02/13/2025Q2: How many drinks containing alcohol do you have on a typical day when you are drinking?1 or Q3: How often do you have six or more drinks on one occasion?Less than cfoiasc8602/13/2025Overall Financial Resource Strain (CARDIA)AnswerDate RecordedHow hard is it for you to pay for the very basics like food, housing, medical care, and heating?Not hard at all02/13/2025PHQ-2AnswerDate Recorded Patient Health Questionnaire-2 Uywbp375Fin[facility] [place] of Occupational [facility] - Occupational Stress QuestionnaireAnswerDate RecordedDo you feel stress - tense, restless, nervous, or anxious, or unable to sleep at night because your mind is troubled all the time - these days?Not at all02/13/2025Exercise Vital SignAnswerDate RecordedOn average, how many days per week do you engage in moderate to strenuous exercise (like a brisk walk)?1 day02/13/2025On average, how many minutes do you engage in exercise at this level?30 min02/13/2025Hunger Vital SignAnswerDate RecordedWithin the past 12 months, you worried that your food would run out before you got the money to buymore.Never true02/13/2025 Within the past 12 months, the food you bought just didn't last and you didn't have money to get more.Never true02/13/2025PRAPARE - TransportationAnswerDate RecordedIn the past 12 months, has lack of transportation kept you from medical appointments or from getting medications?No02/13/2025In the past 12 months, has lack of transportation kept you from meetings, work, or from getting things needed for daily living?No02/13/2025Housing Stability Vital SignAnswerDate RecordedIn the last 12 months, was there a time when you were not able to pay the mortgage or rent on time?No10/12/2023In the last 12 months, how many places have you lived?In the last 12 months, was there a time when you did not have a steady place to sleep or slept in unionelter (including now)?No 10/12/2023Housing Stability Vital SignAnswerDate RecordedIn the last 12 months, was there a time when you were not able to pay the mortgage or rent on time?No 02/13/2025In the past 12 months, how many times have you moved where you were living?t any time in the past 12 months, were you homeless or living in a intermediate (including now)?No02/13/2025CommentsNoSex and Gender InformationValueDate RecordedSex Assigned at MtnodJjnrsr82/02/2023 12:43 PM EDT Legal SstYgogjf32/15/2023 7:12 PM EDTGender DofdeezfGtlxkq14/02/2023 12:43 PM EDTSexual OrientationNot on file Last Filed Vital Signs Vital SignReadingTime TakenCommentsBlood Toihguuf021/8006 1:48 PM EDT Nxelk697803/20/2025 1:48 PM KDNGbmuleyqbhr76 ??C (96.8 ??F)03/13/2025 9:32 AM EDT Respiratory Ixve873703/20/2025 1:48 PM EDTOxygen Hvegxduhsq99%03/20/2025 1:48 PM EDTInhaled Oxygen Concentration--Vqsqzr775 kg (221 lb)03/20/2025 1:48 PM EDT Aabaew095 cm (5' 3 )03/20/2025 1:48 PM EDTBody Mass Index39.15003/20/2025 1:48 PM EDT Plan of Treatment DateTypeDepartmentCare Team (Latest Contact Info)Hkhnkzalprs63/23/2025 1:30 PM EDTOffice Visit [facility] [address] [place] [address] Anju Roblero NP [address] [place] [address] 09/29/2025 1:00 PM ESTOffice Visit [facility] [address] [place] [phone] Orin De Los Santos NP [address] [place], [place] [id number] 03/19/2026 2:00 PM EDTOffice Visit [facility] [address] [place] [address] Maddison Ruiz MD [address] [place] [address] Health MaintenanceDue DateLast DoneCommentsCT Dvzgzfswgjnp1968FIT-DNA 1970 1291Emhiqechldnlw45/03/4070JWE74FOBT/ Influenza Vaccine (#1)06/05/20255197Mhjujzbnb31/16/350457/, 04/27/2023, 04/27/2023, Additional history vmywfnBecurnzdlbe70/03/203105/olorectal Cancer Ixzerjcsg99/03/2031 Procedures Procedure NamePriorityDate/TimeAssociated DiagnosisCommentsBI MAMMOGRAM SCREENING QELUVKQIODtgfdjc74/16/2025 7:06 AM EDT Breast cancer screening by mammogram AQMIFGAHELPQzktkpg85/12/2020 12:00 PM EDT Q - FECAL GLOBIN BY ZKMJPRVPGEBOMYKInynfvb17/25/2021 from Last 3 Months or Most Recently Relevant to Health Maintenance Results * Bilateral screening mammogram (03/20/2025 7:06 AM EDT) Narrative Authorizing ProviderResult TypeResult StatusOrin De Los Santos NPIMG BI PROCEDURESFinal ResultPerforming OrganizationAddressCity/State/ZIP CodePhone Number [facility] [address] [place] [address], * Colonoscopy (02/04/2021 12:00 PM EDT)Anatomical RegionLateralityModality EndoscopySpecimen (Source)Anatomical Location / LateralityCollection Method / VolumeCollection TimeReceived Time02/04/2021 12:00 PM EDT Narrative 02/04/2021 12:00 PM EDT PERFORMED AT [facility] LOCATION:[id number] negative Procedure Note CONVERSION, GENERIC - 02/18/2023 PERFORMED AT [facility] LOCATION:[id number] negative Authorizing ProviderResult TypeResult StatusRachel E Fruth NPENDOSCOPY PROCEDURE ORDERABLESFinal Result * (ABNORMAL) Q - FECAL GLOBIN BY IMMUNOCHEMISTRY (12/27/2020)ComponentValueRef RangeTest MethodAnalysis TimePerformed AtPathologist SignatureFECAL GLOBIN BY IMMUNOCHEMISTRYSEE NOTE(A)[facility] LABComment: ??FECAL GLOBIN BY IMMUNOCHEMISTRY ??Micro Number: ?[id number] ??Test Status: ? Final ??Specimen Source: ?? INSURE (TM) FOBT TEST CARD ??Specimen Quality: ??Adequate ??Fecal Globin: ? Detected Specimen (Source)Anatomical Location / LateralityCollection Method / Volume Collection TimeReceived Time12/27/2020 Narrative Authorizing ProviderResult TypeResult StatusRachel E Fruth NPECW LABSFinal ResultPerforming OrganizationAddressCity/State/ZIP CodePhone Number [facility] from Last 3 Months or Most Recently Relevant to Health Maintenance Insurance * Guarantor: Cleo Duffy AAccount TypeRelation to PatientDate of BirthPhoneBilling AddressPersonal/LvklbeUwqy1970 [address] [phone] Care Teams Team MemberRelationshipSpecialtyStart DateEnd Date Jose M Lawler DO [address] [place] [address] PCP - GeneralFamily Medicine03/06/23 Orin De Los Santos, PULP[employer] BUYER [address] [place] [address] Nurse PractitionerFamily Medicine03/06/23
[2025-07-26] MEDS: METHYLPREDNISOLONE SOD SUCC PF 125 MG/2 ML VIAL IM (04:01)
[2025-07-26 05:52] LABS: SARS-CoV-2 Ag NEGATIVE (NEGATIVE)
--- NOTE | 2025-07-26 06:23 | PC.NURSE ---
i gave this patient verbal and written discharge orders along with 2 Rx and this patient voices yes to understanding these. at time of discharge this patient voices no concerns,needs and shows no signs of distress
== END 2025-07-26 06:23 | disposition home or self-care (01) ==
PROVIDERS: Emergency Provider Emergency Medicine; PCP Nurse Practitioner
DX: J06.9 Acute upper respiratory infection, unspecified (principal); K13.79 Other lesions of oral mucosa; I10 Essential (primary) hypertension; J45.909 Unspecified asthma, uncomplicated; Z79.899 Other long term (current) drug therapy
CPT/HCPCS: 70360; 87070; 87811; 87880; 96372; 99284; J2919